=== PATIENT | female | born 1970 | race Caucasian/White ===

== ENCOUNTER 2022-12-03 04:32 | Day surgery (SDC) | payer OTHER ==
[2022-11-28 13:24] VITALS: BMI 24.5
[2022-12-03] MEDS ORDERED: MIDAZOLAM HCL 2 MG/2 ML SINGLE DOSE VIAL ONE (08:29)
[2022-12-03] MEDS ORDERED: ONDANSETRON 4 MG/2 ML VIAL ONE (08:29)
[2022-12-03] MEDS ORDERED: DEXAMETHASONE SOD PHOSPHATE 4 MG/1 ML VIAL ONE (08:29)
[2022-12-03] MEDS ORDERED: PROPOFOL 20 ML ONE (08:29)
[2022-12-03] MEDS ORDERED: KETOROLAC TROMETHAMINE 30 MG/1 ML VIAL ONE (08:32)
[2022-12-03] MEDS ORDERED: oxyCODONE HCL 5 MG TABLET PO PRN (08:52)
[2022-12-03] MEDS ORDERED: ACETAMINOPHEN 325 MG TABLET (FP) PO PRN (08:52)
[2022-12-03] MEDS ORDERED: LACTATED RINGERS SOLUTION 1,000 ML IV SCH (09:00)
[2022-12-03] MEDS ORDERED: CLINDAMYCIN 600MG PREMIX IVPB 600 MG/50 ML BAG IVPB ONE ×2 (09:31→09:40)
[2022-12-03] MEDS ORDERED: CLINDAMYCIN 900 MG PREMIX BAG IVPB ONE (09:32)
[2022-12-03] MEDS ORDERED: TRANEXAMIC ACID 1000 MG/10 ML VIAL ONE (10:09)
[2022-12-03 12:14] VITALS: PULSE 89; RESP 20
[2022-12-03 12:43] VITALS: BP 117/75; TEMP 98.4
== END 2022-12-03 13:20 | disposition home or self-care (01) ==
LOC: JASU-SURG 04:32
PROVIDERS: ATTEND Obstetrics & Gynecology
PROC: 0UB98ZZ Excision of Uterus, Via Natural or Artificial Opening Endoscopic (ICD-10-PCS; principal; 2022-12-03 09:00)
DX: N92.1 Excessive and frequent menstruation with irregular cycle (principal); N84.0 Polyp of corpus uteri
CPT/HCPCS: 81025; 88305-TC; 94760